=== PATIENT | female | born 1940 | race Two or more races ===

== ENCOUNTER 2018-12-29 14:59 | Outpatient (CLI) | payer OTHER | END 2018-12-29 15:02 | disposition home or self-care (01) | LOC: RAD 14:59 | DX: Z01.811 Encounter for preprocedural respiratory examination (principal) ==

== ENCOUNTER 2018-12-29 15:21 | Outpatient (CLI) | payer OTHER | END 2018-12-29 15:36 | disposition home or self-care (01) | LOC: LAB 15:21 | DX: D68.8 Other specified coagulation defects (principal); R94.31 Abnormal electrocardiogram [ECG] [EKG] ==

== ENCOUNTER 2019-01-03 09:45 | Inpatient (IN) | payer OTHER ==
[2019-01-06] MEDS ORDERED: SYNTHROID50 MCG PO (08:38)
[2019-01-06] MEDS ORDERED: LISINOPRIL20 MG PO (08:38)
[2019-01-06] MEDS ORDERED: GLIMEPIRIDE4 MG PO (08:39)
[2019-01-06] MEDS ORDERED: ADULT ASPIRIN81 MG PO (08:39)
[2019-01-06] MEDS ORDERED: NORVASC5 MG PO (08:39)
[2019-01-06] MEDS ORDERED: CLONAZEPAM0.5 MG PO (08:40)
[2019-01-12] MEDS ORDERED: SERTRALINE HCL50 MG PO (08:11)
[2019-01-12] MEDS ORDERED: RISPERIDONE2 MG PO (08:11)
[2019-01-12] MEDS ORDERED: GABAPENTIN600 MG PO (08:12)
[2019-01-15] MEDS ORDERED: CODE1TAB37 PO (10:33)
== END 2019-01-15 12:54 | DRG 743 ==
LOC: OB/GYN 01-12 06:28 → O/R 01-12 06:28 → SURG 01-12 07:30 → OB/GYN 01-12 13:23
PROVIDERS: ADMIT Obstetrics & Gynecology
PROC: 0UQF7ZZ Repair Cul-de-sac, Via Natural or Artificial Opening (ICD-10-PCS; 2019-01-12)
PROC: 0JQC0ZZ Repair Pelvic Region Subcutaneous Tissue and Fascia, Open Approach (ICD-10-PCS; 2019-01-12)
PROC: 0JQC0ZZ Repair Pelvic Region Subcutaneous Tissue and Fascia, Open Approach (ICD-10-PCS; 2019-01-12)
PROC: 0UT97ZZ Resection of Uterus, Via Natural or Artificial Opening (ICD-10-PCS; principal; 2019-01-12 08:30)
DX: N72 Inflammatory disease of cervix uteri (principal); N81.3 Complete uterovaginal prolapse; E11.9 Type 2 diabetes mellitus without complications; I10 Essential (primary) hypertension